=== PATIENT | female | born 1950 | race Caucasian/White ===

== ENCOUNTER 2023-02-09 08:27 | Inpatient (IN) | payer MEDICARE, OTHER, SELFPAY ==
[2023-02-09] VITALS (8 sets, daily range): BP systolic 0–101; BP diastolic 0–82; PULSE 0–141; RESP 0–30; TEMP 35.9; O2SAT 0–100
[2023-02-09 08:39] LABS: Glucose Point of Care 349 mg/dL (70-110)
--- NOTE | 2023-02-09 08:39 | CTR_ITS ---
PROCEDURE INFORMATION: Exam: CT Head Without Contrast Exam date and time: 02/09/2023 7:29 AM Age: 72 years old Clinical indication: Stroke-like symptoms; Altered mental status/memory loss and drowsines/somnolence; Additional info: Stroke like symptoms TECHNIQUE: Imaging protocol: Computed tomography of the head without contrast. Radiation optimization: All CT scans at this facility use at least one of these dose optimization techniques: automated exposure control; mA and/or kV adjustment per patient size (includes targeted exams where dose is matched to clinical indication); or iterative reconstruction. Other technique: STROKE PROTOCOL was implemented. REPORTING DATA: Count of CT and Cardiac NM exams in prior 12 months: This patient has received 0 known CTs and 0 known cardiac nuclear medicine studies in the 12 months prior to the current study. COMPARISON: No relevant prior studies available. RADIATION DOSE METRICS: Total DLP (mGy-cm): 1025 FINDINGS: Brain: Patchy hypoattenuation in the periventricular and subcortical white matter, consistent with chronic small vessel ischemia. No CT evidence of acute ischemia. No acute hemorrhage. No mass effect. Cerebral ventricles: No ventriculomegaly. Paranasal sinuses: Visualized sinuses are unremarkable. No fluid levels. Mastoid air cells: Visualized mastoid air cells are well aerated. Orbital cavities: Bilateral lens extractions. Bones/joints: Unremarkable. No acute fracture. Soft tissues: Unremarkable. Vasculature: Dense calcification in the region of the right supraclinoid ICA. CT/CT head wo con* [id number] IMPRESSION: No acute intracranial abnormality. Please note that MRI is more sensitive for early changes of acute ischemia. ASSESSMENT: ASPECTS (Chantal Stroke Program Early CT Score) is 10.
--- NOTE | 2023-02-09 08:51 | ED_ITS ---
HPI - Neuro Symptoms/Deficit General: Chief Complaint: Neuro Symptoms/Deficit Stated Complaint: STROKE LIKE SYMPTOMS Time Seen by Provider: 02/09/23 08:50 History of Present Illness: Patient presents to the ER by EMS with complaints of abdominal pain and right-sided upper extremity and lower extremity neglect as well as expressive aphasia. EMS states patient was normal at approximately 7 AM this morning and her agreed to this. Patient started having abdominal pain when came back to talk to he said she was just not herself she was not moving her right upper and lower extremity and was only able to get out 1 word answers to simple questions. Upon further talking to he did state patient had black bowel movements approximately 1 week ago. does admit to patient drinking alcohol chronically and taking [id number] equate daily. He states overall she is fairly healthy but also she has not went to the doctor in years and does not take any medicine. Onset (ago): hour(s) (2) Last Observed Normal: 07:00 Timing confirmed by: spouse Location: speech, right arm and right leg History of same: No Severity: moderate Quality: weak Relieving factors: none Exacerbating factors: none Context: sudden onset On Anticoagulants: No Associated symptoms: Reports no associated symptoms Treatments Prior to Arrival: other medication (250 mls ns per ems ) Review of Systems General: Reports: ROS unobtainable due to medical condition [facility] PFSH: Medical History (Updated 02/09/23 @ 11:08 by DANICA Stevens) Abnormal EKG Acute kidney injury Blood loss anemia Cardiac arrest Gastrointestinal bleeding Hyperkalemia Metabolic acidosis Respiratory failure Transaminitis NIH stroke score NIHSS: Level Of Consciousness - 1a: 0 Level Of Consciousness Questions - 1b: Both Correct Level Of Consciousness Commands - 1c: Both Correct Best Gaze - 2: Partial Gaze Palsy Facial Palsy - 4: Normal Motor Arm Right - 5: No Drift Motor Arm Left - 5: No Drift Motor Leg Right - 6: No Drift Motor Leg Left - 6: No Drift Limb Ataxia - 7: Present In Two Limbs Sensory - 8: Mild To Moderate Loss Best Language - 9: Mild/Moderate Aphasia Dysarthia - 10: Normal Physical Exam Const: COMMON NORMALS: alert GENERAL APPEARANCE: frail appearing and appears older than stated age HENMT: COMMON NORMALS: normocephalic, atraumatic and hearing grossly normal bilaterally HEAD & SCALP: normocephalic and atraumatic Eye: COMMON NORMALS: Equal, round and reactive pupils present and EOMs intact bilaterally PUPIL: Yes Equal, round and reactive pupils present Neck/C-Spine: COMMON NORMALS: full ROM, no lymphadenopathy, supple, no meningeal signs, no JVD and Thyroid normal THYROID: Thyroid normal Chest: COMMONS NORMALS: normal inspection of the chest Resp: COMMON NORMALS: normal respiratory effort, No retractions and No use of accessory muscles Cardio: COMMON NORMALS: no JVD, S1 normal heart sound present and S2 normal heart sound present RATE: tachycardic HEART SOUNDS: S1 normal heart sound present and S2 normal heart sound present GI: COMMON NORMALS: Normal to inspection, nondistended, normoactive bowel sounds present, Soft to palpation and non-tender PALPATION: Yes Soft to palpation : COMMON NORMALS: Yes no CVA tenderness BLADDER/KIDNEY EXAM: Yes no CVA tenderness Back/Pelvis: COMMON NORMALS: no CVA tenderness Extremity: COMMON NORMALS: normal to inspection Neuro: SENSORIUM/ORIENTATION: Yes alert MENINGEAL SIGNS: Yes no meningeal signs SPEECH: expressive aphasia GAIT: Yes Unable to assess gait Psych: APPEARANCE: Yes grossly normal Skin: COMMON NORMALS: no rashes or lesions noted GENERAL SKIN EXAM: no rashes or lesions noted Procedures Intubation Additional Comments: intubation performed by electronic maintenance supervisor and medic, with no complications, 20 mg etomidate given during procedure, then pt placed on a proprofol drip Course Vital Signs: Vital signs: Vital Signs Temperature 96.6 F L 02/09/23 08:34 Pulse Rate 141 H 02/09/23 11:38 Respiratory Rate 13 02/09/23 11:29 Blood Pressure 101/82 02/09/23 11:38 Pulse Oximetry 100 02/09/23 11:20 Oxygen Delivery Me thod 02/09/23 08:34 Fraction of Inspir ed Oxygen 100 02/09/23 11:20 MDM - Neuro Symptoms/Deficit Medical Decision Making Patient presents to the ER with complaints of right-sided weakness and aphasia since 7 AM. EMS states she only 1 word answers out and does not make sense as well as not able to move her right upper and lower extremities at all. Code stroke was called patient was taken immediately to the CT scan when patient arrived back to the ER she was still having one-word answers somewhat appropria te and would follow somewhat commands but she was able to move her right upper and lower extremities against gravity. Neurology was consulted who did a telemetry neurology visit and thought she was not appropriate for tPA at this time. After this time patient took a turn for the worse and became to have agonal respirations and eventually went asystolic. CODE BLUE was called CPR was performed patient was given 2 rounds of epi as well as intubated. Patient's pulse did return and EKG was obtained again on patient however this time it did show ST segment elevation in multiple leads. Dr. Ramirez was consulted and code STEMI was called however during this time. Patient's lab work start returning and showed a hemoglobin of 4.0. ABG was obtained initial ABG showed a pH of 6.6 patient was given 1 dose of bicarb, a repeat ABG was true because of discrepancies in the first ABG and it showed a improved pH of about 7.45. Potassium in the sixes. Dr. Patel was consulted also Dr. Ramirez decided to not take the patient to the [facility] due to the low hemoglobin and care was transitioned over Dr. Patel Differential Diagnosis Likely cerebrovascular accident and transient cerebral ischemia Medical Records I reviewed the patient's medical records. Lab Data I reviewed the patient's lab results. 02/09/23 09:30 02/09/23 09:[address] 02/09/23 08:39 IMPRESSION: No acute intracranial abnormality. Please note that MRI is more sensitive for early changes of acute ischemia. ASSESSMENT: ASPECTS (Chantal Stroke Program Early CT Score) is 10. Chest X-Ray 02/09/23 10:33 IMPRESSION: 1. Endotracheal tube terminates approximately 4.6 cm above the michael. 2. Right IJ central venous catheter terminates in the region of the right atrium. 3. Enteric tube terminates in the region of the gastric body with side port likely just below the GE junction. Laboratory Results WBC 23.4 10^3/uL (4.0-10.0) H 02/09/23 09:30 Corrected WBC 18.1 10^3/cmm (4.8-10.8) H 02/09/23 09:30 RBC 1.06 10^6/uL (4.1-5.3) L 02/09/23 09:30 Hgb 4.1 g/dL (11.5-15.3) L* 02/09/23 09:30 Hct 15.5 % (37.0-47.0) L* 02/09/23 09:30 MCV 146.2 fl (81-99) H 02/09/23 09:30 MCH 38.7 pg (28.0-34.0) H 02/09/23 09:30 MCHC 26.5 g/dL (30.0-36.0) L 02/09/23 09:30 RDW 16.0 % (12.1-15.1) H 02/09/23 09:30 Plt Count 348 10^3/cmm (130-400) 02/09/23 09:30 MPV 10.5 fL (7.4-10.4) H 02/09/23 09:30 Lymph % (Auto) Not Reportable 02/09/23 09:30 Sierra % (Auto) Not Reportable 02/09/23 09:30 Lymph # (Auto) Not Reportable 02/09/23 09:30 Sierra # (Auto) Not Reportable 02/09/23 09:30 Total Counted 100 (0-100) 02/09/23 09:30 Atypical Lymphs % 0.0 % (0-5) 02/09/23 09:30 Absolute Neutrophils 15.2 10^3/cmm (1.4-6.5) H 02/09/23 09:30 Segmented Neutrophils 61 % 02/09/23 09:30 Abs Segm Neuts (Man) 14.3 10/cmm (1.6-7.1) H 02/09/23 09:30 Band Neutrophils 4.0 % 02/09/23 09:30 Abs Band Neuts (Man) 0.9 10^3/cmm (0.0-1.2) 02/09/23 09:30 Absolute Lymphocytes 8.0 10^3/cmm (1.2-3.4) H 02/09/23 09:30 Lymphocytes (Manual) 34 % 02/09/23 09:30 Monocytes (Manual) 1.0 % 02/09/23 09:30 Absolute Monocytes 0.2 10^3/cmm (0.1-0.6) 02/09/23 09:30 Eosinophils (Manual) 0 % 02/09/23 09:30 Absolute Eosinophils 0.0 10^3/cmm (0.0-0.7) 02/09/23 09:30 Basophils (Manual) 0.0 % 02/09/23 09:30 Absolute Basophils 0.0 10^3/cmm (0.0-0.2) 02/09/23 09:30 Nucleated RBCs 29.0 /100WBC (0-1) H 02/09/23 09:30 Platelet Estimate Normal (Normal) 02/09/23 09:30 Polychromasia 1+ H 02/09/23 09:30 Anisocytosis 1+ H 02/09/23 09:30 Macrocytosis 1+ H 02/09/23 09:30 PT 25.70 SECONDS (12.1-14.9) H 02/09/23 09:30 INR 2.25 (0.8-1.2) H 02/09/23 09:30 APTT 38.1 SECONDS (23.9-36.7) H 02/09/23 09:30 Specimen Type Arterial 02/09/23 09:34 Sample Site Femoral, left 02/09/23 09:34 ABG pH 6.65 (7.35-7.45) L* 02/09/23 09:34 ABG pCO2 28.8 mmHg (35-45) L 02/09/23 09:34 ABG pO2 49.5 mmHg (80.0-100.0) L 02/09/23 09:34 ABG HCO3 3.2 mmol/L (22-26) L 02/09/23 09:34 ABG O2 Saturation 39.9 02/09/23 09:34 ABG Base Excess -30.1 mmol/L (-2.0-2.0) L 02/09/23 09:34 Timmy Test N/a 02/09/23 09:34 A-a O2 Gradient 80.9 mmHg (5-10) H 02/09/23 09:34 Hematocrit 13.5 % (37-47) L 02/09/23 09:34 Hgb O2 Saturation 38.9 % (95-100) L 02/09/23 09:34 Carboxyhemoglobin 1.1 %THgb (0.4-20.1) 02/09/23 09:34 Methemoglobin 1.4 % (0.4-1.5) 02/09/23 09:34 Total Hemoglobin 4.4 g/dL (12-16) L 02/09/23 09:34 Sodium 146.0 mmol/L (131-143) H 02/09/23 09:34 Potassium 6.0 mmol/L (3.5-5.0) H 02/09/23 09:34 Glucose 296.0 mg/dL (70-115) H 02/09/23 09:34 Ionized Calcium 1.2 mmol/L (1.1-1.4) 02/09/23 09:34 Respiration Rate 18.0 % 02/09/23 09:05 O2 Delivery Device Vent 02/09/23 09:34 Spontaneous Rate 22.0 % 02/09/23 09:05 FiO2 100.0 % 02/09/23 09:34 Tidal Volume 0.45 02/09/23 09:34 PEEP 5.0 cmH20 02/09/23 09:34 Specimen Drawn By Glc 02/09/23 09:05 Health And Safety Director ID glc 02/09/23 09:34 Blood Gas Notified Time 92402/09/23 09:05 Sodium 145 mmol/L (136-145) 02/09/23 09:30 Potassium 5.8 mmol/L (3.5-5.1) H 02/09/23 09:30 Chloride 107 mmol/L (98-107) 02/09/23 09:30 Carbon Dioxide 4 mmol/L (22-29) L* 02/09/23 09:30 Anion Gap 39.8 (5-19) H 02/09/23 09:30 BUN 17 mg/dL (8-23) 02/09/23 09:30 Creatinine 1.3 mg/dL (0.5-0.9) H 02/09/23 09:30 GFR Calculation 40.5 mL/min (90-130) L 02/09/23 09:30 Glucose 298 mg/dL (65-115) H 02/09/23 09:30 POC Glucose 349 mg/dL (70-110) H 02/09/23 08:37 Calculated Osmolality 313 mOsm/kg (285-295) H 02/09/23 09:30 Lactic Acid 23.0 mmol/L (0.5-2.2) H* 02/09/23 09:30 Calcium 7.7 mg/dL (8.5-10.5) L 02/09/23 09:30 Total Bilirubin 0.4 mg/dL (0.15-1.2) 02/09/23 09:30 AST 405 U/L (0-32) H 02/09/23 09:30 ALT 268 U/L (0-33) H 02/09/23 09:30 Alkaline Phosphatase 33 U/L (35-105) L 02/09/23 09:30 Troponin T Baseline 1753 ng/L (0-10) H* 02/09/23 09:30 Total Protein 4.2 g/dL (6.6-8.7) L 02/09/23 09:30 Albumin 2.6 g/dL (3.5-5.2) L 02/09/23 09:30 Globulin 1.6 g/dL (1.3-4.6) 02/09/23 09:30 Blood Type O Positive 02/09/23 10:04 Rho(D) Type Positive 02/09/23 10:04 Antibody Screen Not Reportable 02/09/23 10:04 PEG Antibody Screen Negative 02/09/23 10:04 Crossmatch See Detail 02/09/23 10:[address] Head: Radiologist's impression: Negative for acute changes EKG Data EKG 1: I personally reviewed and interpreted this EKG as follows: EKG interpretation date: 02/09/23 EKG interpretation time: 08:39 Prior EKG tracings: not available for review Interpretation: EKG showed sinus tachycardia 132 beats a minute UT interval of 123 QRS duration of 109 QT of [address] depression and abnormal QRST angle no previous tracings are available for review. EKG 2: I personally reviewed and interpreted this EKG as follows: EKG interpretation date: 02/09/23 EKG interpretation time: 09:19 Prior EKG tracings: available for review Ischemic changes: acute STEMI Interpretation: EKG showed supraventricular tachycardia with a rate of 122 beats a minute left axis deviation low voltage QRS possible right ventricular conduction delay marked ST elevation in leads V3 through V6 Critical Care Time Critical Care Time: Critical Care Time: Yes Total Critical Care Time: 60 Attestation: Patient agonal respirations and then went pulseless. CODE BLUE was called CPR was started for approximately 6 minutes patient received 2 rounds of epi patient was intubated by WOOD TOOL MAKER and medic and put on ventilator. ABGs were obtained first that showed a pH of approximately 6.6 however this may have been a venous gas 1 amp of bicarb was given a second ABG showed a pH of approximately 7.4 new EKG was obtained that showed ST elevation cardiology was consulted lab work showed hemoglobin of 4.[address] Patel was consulted patient was given 20 of etomidate during the intubation process patient was put on a propofol drip for sedation patient's pressure was lower than desired patient was eventually p laced on a Levophed drip. Dr. 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
[2023-02-09] MEDS: sodium chloride 0.9% 1,000 ML 999 ML IV (09:00)
--- NOTE | 2023-02-09 09:09 | PC.PHAR ---
pt unable to verify medications-ext med history shows last filled propranolol er 60mg daily filled 01/13/23 30d/s and atorvastatin 10mg daily filled 02/22/22 90d/s-[facility] pharmacy not open in 02/09/23Friday to verify if more meds are filled or have been picked up
--- NOTE | 2023-02-09 09:19 | ECG_ITS ---
[facility] Test Date: 2023-02-09 Pat Name: Lorin Zepeda Department: Room: Gender: Female Lever Tender: : 1950 Requested By: Jasson Abdi Order Number: [id number] Sanjay MD: Keli Omalley M.D. Measurements Intervals Kidder Rate: 122 P: 0 MD: 0 QRS: -34 QRSD: 80 T: 120 QT: 342 QTc: 488 Interpretive Statements SUPRAVENTRICULAR TACHYCARDIA LEFT AXIS DEVIATION [QRS AXIS < -30] LOW QRS VOLTAGE [QRS DEFLECTION < 0.5/1.0 mV IN LIMB/CHEST LEADS] POSSIBLE RIGHT VENTRICULAR CONDUCTION DELAY [RSR (QR) IN V1/V2] MARKED ST ELEVATION, CONSIDER ANTEROLATERAL INJURY [MARKED ST ELEVATION W/O NORMALLY INFLECTED T-WAVE IN V3-V6] ACUTE MD No previous ECG available for comparison Electronically Signed On 02-09-2023 19:40:16 CDT by Keli Omalley M.D. [id number]
[2023-02-09] MEDS: heparin 5,000 unit/mL INJ 1 mL 5000 UNIT (09:20)
[2023-02-09] MEDS: etomidate 2 mg/mL INJ SDV 10 mL 20 MG IVP (09:22)
[2023-02-09] MEDS: propofol 1,000 MG/100 ML INJ 3.38 MG IV (09:27)
[2023-02-09 09:44] LABS: ABG PCO2 28.8 mmHg (35-45); Alveolar-Arterial Oxygen Gradi 80.9 mmHg (5-10); Arterial Blood Gas Hematocrit 13.5 % (37-47); Base Excess ABG -30.1 mmol/L (-2.0-2.0); Blood Gas Operator Identificat glc; Blood Gas Sample Site Femoral, left; Blood Gas Sample Type Arterial; Blood Gas Tidal Volume 0.45; Carboxyhemoglobin 1.1 %THgb (0.4-20.1); HCO3 ABG 3.2 mmol/L (22-26); HGB O2 Sat 38.9 % (95-100); Ionized Calcium Level - ABG 1.2 mmol/L (1.1-1.4); Methemoglobin 1.4 % (0.4-1.5); Oxygen Device VENT; Oxygen Saturation ABG 39.9; PO2 ABG 49.5 mmHg (80.0-100.0); Total Hemoglobin 4.4 g/dL (12-16)
[2023-02-09 09:51] LABS: Mean Corpuscular HGB Conc 26.5 g/dL (30.0-36.0); Mean Corpuscular Hemoglobin 38.7 pg (28.0-34.0); Mean Corpuscular Volume 146.2 fl (81-99); Mean Platelet Volume 10.5 fL (7.4-10.4); Platelet Count 348 10^3/cmm (130-400); Red Blood Count 1.06 10^6/uL (4.1-5.3); White Blood Count 23.4 10^3/uL (4.0-10.0)
[2023-02-09 09:53] LABS: INR 2.25 (0.8-1.2); Partial Thromboplastin Time 38.1 SECONDS (23.9-36.7)
--- NOTE | 2023-02-09 09:55 | P.CONIM_ITS ---
Providers/Reason For Consult Consulting Physician/Specialty*: Cardiovascular medicine Reason for Consult*: Cardiac arrest with abnormal EKG Requesting Physician: Trinidad Attending Physician: Brett Ramirez MD Primary Care Provider: Manuel Romero MD History of Present Illness History of Present Illness Lorin Zepeda is a 72 year old female who apparently has no known cardiac history or vascular history. This history is taken from the emergency room physician and other personnel in the emergency room. Patient apparently awoke t his morning with neurologic symptoms to include slurred speech and weakness of the right arm and leg. She was brought to the emergency room as a stroke alert. Neurology was contacted, the patient was sent to CT and tPA was ordered. The CT was negative. Shortly thereafter the patient's neurologic symptoms resolved and she had a cardiac arrest. Fortunately, the tPA had not been administered. I am not sure what the initial rhythm was after the arrest. Patient's first EKG was done at 0839 hrs. and showed sinus tachycardia with minimal diffuse ST segment depression. After the arrest and resuscitation the EKG revealed sinus tachycardia with ST segment elevation in leads V2 through V6 as well as leads I and L. The resuscitation involves CPR, intubation, etomidate, propofol and norepinephrine by continuous infusion. She has received 4000 units of heparin. The first set of labs to return was an arterial blood gas after resuscitation. The PO2 is 49, PCO2 28 and the pH is 6.65. Her potassium is 6.0. Glucose is 349. I asked the emergency room to give the patient 2 A of bicarbonate prior to bringing her to the cardiac catheterization laboratory. As the laboratory data were coming back I spoke to her , sister, daughter and son-in-law. Her sister told me that she drinks alcohol somewhat heavily. Her told me that she uses equate [id number] and takes multiple pills per day. Her also told me that she had been complaining of weakness. They did not notice that she was pale. She had been complaining of abdominal pain for the last couple of days. She also told her 3 to 4 days ago that her stool was black and tarry. She is sedated now on the ventilator. After I finished talking to the family the second blood gas returned with a pH o f 7.49, PCO2 of 42 and PO2 of 344. Additionally her hemoglobin came back at 4.1. Her white blood cell count is 23.4. Creatinine is 1.3. Calculated glomerular filtration rate is 40.5. Her BUN is 17. Serum carbon dioxide is 4. AST 405, ALT 268. Albumin 2.6. Review of Systems Narrative: Review of systems is unavailable due to the patient's intubated status. Medications/Allergies Home Medications Medication Instructions Recorded Confirmed Last Taken Type Unable to Assess 02/09/23 02/09/23 Unknown History Current Medications Generic Name Dose Route Start Last Admin Trade Name Freq PRN Reason Stop Dose Admin Propofol 1,000 mg in 100 mls @ 0 mls/hr 02/09/23 09:30 02/09/23 09:27 Diprivan IV 10 mcg/kg/min .Q0M JACKY 3.38 mls/hr Administration Protocol Per Protocol PFSH Acute PFSH: Medical History (Updated 02/09/23 @ 10:38 by Brett Ramirez MD) Abnormal EKG Acute kidney injury Blood loss anemia Cardiac arrest Gastrointestinal bleeding Hyperkalemia Metabolic acidosis Respiratory failure Transaminitis Vitals/I&O/Wt Last Vital Signs Temp 96.6 F L 02/09/23 08:34 Pulse 106 H 02/09/23 08:34 Resp 28 H 02/09/23 09:44 BP 87/42 02/09/23 08:34 Pulse Ox 95 02/09/23 08:34 O2 Del Method 02/09/23 08:34 FiO2 100 02/09/23 09:44 Weight last 48 hrs Weight 124 lb Physical Exam Narrative: GENERAL: In general patient is intubated and sedated but moving some. HEENT: Exam within normal limits. NECK: Supple without jugular vein distention. The carotid upstroke is normal without bruits. BACK: Exam normal. LUNGS: Clear. HEART: Regular rate and rhythm. ABDOMEN: Benign without organomegaly or tenderness. EXTREMITIES: No edema. NEUROLOGIC: Exam normal. SKIN: Unremarkable. Pale Data 02/09/23 09:30 02/09/23 09:30 A&P Assessment and plan (1) Blood loss anemia: (2) Gastrointestinal bleeding: (3) Metabolic acidosis: (4) Cardiac arrest: (5) Abnormal EKG: (6) Respiratory failure: (7) Hyperkalemia: (8) Acute kidney injury: (9) Transaminitis: Plan Treat potassium. Transfuse packed red blood cells. Further assess labs and x- rays. Reassess EKG. I suspect that the EKG changes will resolve after resuscitation with red cells and lowering of the potassium. At this time it is far too dangerous to perform angiography. I have updated the family to include the individuals mentioned above. I have spoken to Dr. Euceda the hospitalist and the emergency room physician and personnel. Consult Attestations Medical Necessity Statement: The patient will need to be admitted to the ICU for management of blood loss anemia, GI bleed, hyperkalemia, transaminitis among others. and High Time for a total of 80 minutes, includes reviewing past or interval history, examining/interviewing patient, placing orders, counseling patient/family/other support, updating patient/family/other support, discussing plan of care with staff, communicating with other healthcare providers, documenting encounter and coordinating care Diagnoses Blood loss anemia D50.0 Gastrointestinal bleeding K92.2 Metabolic acidosis E87.20 Cardiac arrest I46.9 Abnormal EKG R94.31 Respiratory failure J96.90 Hyperkalemia E87.5 Acute kidney injury N17.9 Transaminitis R74.01
[2023-02-09 09:59] LABS: Alanine Aminotransferase 268 U/L (0-33); Albumin Level 2.6 g/dL (3.5-5.2); Alkaline Phosphatase 33 U/L (35-105); Aspartate Amino Transferase 405 U/L (0-32); Blood Urea Nitrogen 17 mg/dL (8-23); Calcium 7.7 mg/dL (8.5-10.5); Chloride 107 mmol/L (98-107); Globulin 1.6 g/dL (1.3-4.6); Glomerular Filtration Rate 40.5 mL/min (90-130); Glucose 298 mg/dL (65-115); Osmolality Calculated 313 mOsm/kg (285-295); Sodium 145 mmol/L (136-145); Total Bilirubin 0.4 mg/dL (0.15-1.2); Total Protein 4.2 g/dL (6.6-8.7)
[2023-02-09 10:09] LABS: Slide Review Slide Review Perform
[2023-02-09 10:10] LABS: Hematocrit 15.5 % (37.0-47.0); Hemoglobin 4.1 g/dL (11.5-15.3)
[2023-02-09 10:14] LABS: Absolute Segmented Neutrophil 14.3 10/cmm (1.6-7.1); Band Neutrophils Absolute 0.9 10^3/cmm (0.0-1.2); Corrected White Blood Count 18.1 10^3/cmm (4.8-10.8); Lymphocytes 34 %; Monocytes Absolute 0.2 10^3/cmm (0.1-0.6); Segmented Neutrophils 61 %; Total Cells Counted 100 (0-100)
[2023-02-09 10:15] LABS: Eosinophils 0 %; Polychromasia 1+
[2023-02-09 10:16] LABS: Anisocytosis 1+; Macrocytosis 1+
[2023-02-09 10:17] LABS: Absolute Neutrophil 15.2 10^3/cmm (1.4-6.5); Platelet Estimate Normal (Normal)
[2023-02-09 10:30] LABS: Anion Gap 39.8 (5-19); Potassium 5.8 mmol/L (3.5-5.1)
[2023-02-09 10:31] LABS: Carbon Dioxide 4 mmol/L (22-29)
--- NOTE | 2023-02-09 10:33 | XRR_ITS ---
PROCEDURE INFORMATION: Exam: XR Chest Exam date and time: 02/09/2023 10:39 AM Age: 72 years old Clinical indication: Device placement; Ett placement (vent status); Additional info: Central line placement et and ng placement TECHNIQUE: Imaging protocol: Radiologic exam of the chest. Views: 1 view. COMPARISON: No relevant prior studies available. FINDINGS: Tubes, catheters and devices: Endotracheal tube terminates approximately 4.6 cm above the michael. Right IJ central venous catheter terminates in the region of the right atrium. Enteric tube terminates in the region of the gastric body with side port likely just below the GE junction. Defibrillator pads overlie the thorax. Lungs: Unremarkable. No consolidation. Pleural spaces: Unremarkable. No pleural effusion. No pneumothorax. Heart/Mediastinum: Unremarkable. No cardiomegaly. Bones/joints: Unremarkable. XR/XR chest 1V portable [id number] IMPRESSION: 1. Endotracheal tube terminates approximately 4.6 cm above the michael. 2. Right IJ central venous catheter terminates in the region of the right atrium. 3. Enteric tube terminates in the region of the gastric body with side port likely just below the GE junction.
[2023-02-09 10:58] LABS: ABG PH Result 6.65 (7.35-7.45)
--- NOTE | 2023-02-09 11:15 | PC.NURSE ---
recieved from er to icu 11 unresponsive on ventilator ,bagging in progress at this time color pale and cool to touch pulse palpable very weak on levophed gtt at 20mcg. versed gtt on hold , vasopression at 0.2 , anesthesia here attempting to insert art line at this time
--- NOTE | 2023-02-09 11:30 | PC.NURSE ---
while attemping to start lines pt noted no pulse cpr stated ... see code sheet
[2023-02-09 11:34] LABS: ABG PH Result 7.49 (7.35-7.45); Blood Gas Operator Identificat GLC; Potassium Level - ABG 5.3 mmol/L (3.5-5.0)
[2023-02-09 11:35] LABS: Blood Gas Drawn By GLC; Blood Gas Sample Type Arterial; Oxygen Device VENT
[2023-02-09 11:36] LABS: Alveolar-Arterial Oxygen Gradi 299.9 mmHg (5-10); Arterial Blood Gas Hematocrit 12.2 % (37-47); Blood Gas Sample Site RB; Ionized Calcium Level - ABG 0.9 mmol/L (1.1-1.4)
[2023-02-09 11:37] LABS: Carboxyhemoglobin 1.3 %THgb (0.4-20.1); HGB O2 Sat 98.8 % (95-100); Methemoglobin 1.1 % (0.4-1.5)
[2023-02-09] MEDS: midazolam 1 mg/mL INJ 2 mL 2 MG (11:54)
[2023-02-09] MEDS: sodium bicarbonate 150 MEQ in dextrose 5% 1,000 ML 100 MEQ IV (11:56)
--- NOTE | 2023-02-09 12:01 | PC.NURSE ---
family at bedside aware of status no blood pressure remains in emd at this time epi gtt infusing along with levophed and eduarda noted blood in et tube after prolonged cpr
--- NOTE | 2023-02-09 12:10 | PC.NURSE ---
code stopped at request of family all medications off
--- NOTE | 2023-02-09 12:20 | PC.NURSE ---
Patient was brought in by EMS from home due to strokelike symptoms per family and EMS. Stroke alert was called at 0820. Patient had complaints of abdominal pain and black tarry stools for a few days that has been getting worse per family. Upon EMS arrival to the home, pt had right side neglect and would only respond to painful stimuli. Pt also had fast respirations and was put on 10L NR per ems. Upon EMS arrival to the ED, pt was taken straight to CT for a head scan. Pt was altered and very restless but was able to follow some commands in CT and when arriving to ED room. Dr Rizvi was notified. Dr Abdi at bedside. Dr Rizvi assessed pt via telehealth iPad; approved not administering TPA due to negative stroke scale and CT scan. While attaining complete assessment, pt began to have decreased responsiveness, appears cool and pale, agonal breathing, unable to attain O2 sats, and hypotensive. Cardiac monitoring showed asystole and no pulse noted by Dr Abdi. CPR initiated at 0906. 0906: CPR started; asystole 0909: Epi given 0910: Pulse check; no pulse; CPR continued 0912: pulse check; Epi given; pulse found and ROSC obtained 0916: 8FR ETT placed and vent connected 0918: 20 mg Etomidate given for sedation per Dr Adbi EKG was done showing a STEMI per Dr Abdi. STEMI Alert called at 0921. Dr Ramirez at bedside and stores lab[employer] staff notified. Multiple meds ordered by Dr Abdi, Dr Ravi, and Dr Ramirez and given/drips started. While waiting on stores [employer] staff, pt labs resulted with low Hgb and K+. Emergent uncrossed blood ordered. Pt started on 2 units of blood on pressure bags. Dr Ramirez ordered pt to stay in ED until stable enough to go to stores laborer. Dr Ravi at bedside inserted a central line in right neck area. Pt assigned ICU room. Pt taken via stretcher to ICU 11 and bedside report given to KEVYN Holt and KEVYN COLLIER at 1100. Pt stable upon transportation with me, RT, and critical ED techs. Full detailed vital signs scanned into pt chart.
[2023-02-09 12:25] LABS: Hemoglobin 2.7 g/dL (11.5-15.3)
--- NOTE | 2023-02-09 12:25 | PC.NURSE ---
no pulse no blood pressure asystole . family at bedside
[2023-02-09 12:30] LABS: Troponin(5th) Baseline 1753 ng/L (0-10)
--- NOTE | 2023-02-09 13:18 | PC.NURSE ---
continued coding for prolonged time with short return of pulse unable to obtain pressure continue code .
--- NOTE | 2023-02-09 13:41 | P.HP_ITS ---
Providers/Chief Complaint Admitting Physician: Sumit Ravi MD Primary Care Provider: Manuel Romero MD Chief Complaint: STROKE LIKE SYMPTOMS History of Present Illness Lorin Zepeda is a 72 year old female with a past medical history of alcoholism, history of chronic pain, chronic neck pain, status post neck surgery, on chronic NSAID medications, no known history of CAD, no known history of stroke, no she potentially had a history of diabetes but family is unsure, she is a heavy alcohol drinker, she does use NSAIDs multiple times throughout the day, due to her chronic neck pain who presents to [facility] due to nonresponsiveness, increased confusion, slurred speech, right arm and right leg weakness. Currently patient is intubated, sedated, in hemorrhagic shock, most of the history was obtained by patient's family members in which I had an extensive family meeting, including patient's , patient's daughter and son. According to patient's family, patient has a history of alcoholism, drinks a couple of drinks of alcohol a day, she also has chronic neck pain for which she has had neck surgery, but due to chronic pain, she uses NSAIDs daily mult iple times throughout the day. For the last few days she has been complaining of black tarry stools and abdominal pain. This morning when woke her up around 7 AM, she was not responding appropriately, she displayed right upper right lower extremity weakness, with expressive aphasia, she was not herself, she only could provide one-word answers. On arrival patient came in as a stroke alert, however after review with neurology, CT head was negative, she was not deemed a tPA candidate. Patient developed agonal breathing in the emergency room, eventually developed asystole, CODE BLUE called, CPR initiated, received 2 rounds of epinephrine, was intubated, with ROSC, EKG showing ST elevations, cardiology consulted, plans on taking to cardiac catheterization lab. Patient's labs Were coming back at the same time and she was found to have a hemoglobin of 4, ABG showed a pH of 6.6, received amp of bicarb, repeat ABG showed a pH of 7.45 possible and discrepancy between ABGs. -I had an extensive meeting with ER physician and cardiology -Cardiology has advised against cardiac catheterization for now, given her severe anemia 4, INR of 2.2, likely source of her strokelike symptoms and her ST elevations is acute anemia -During this time patient was having hemodynamic compromise, was on Levophed, at 10, on 100% FiO2, not responding to commands, not on sedation, she was mottled in bilateral lower extremities up to the level of knee, -Abdomen was a bit distended, no guarding, no rebound, no rigidity -She had diminished peripheral pulses, DP PT pulses were barely palpable, with a bluish hue to peripheral extremities -Pupils were fixed and dilated -Review of her blood work shows elevated LFTs, possible shock liver, but she does have a history of alcoholism -With elevated INR possibly related to alcoholism -Hemoglobin of 4, with history of bloody black tarry stools, and abdominal pain concerning for GI bleed -She had lactic acidosis -Respiratory failure on ventilation -1.3, with minimal urine output after Garza catheter placement -Blood sugar was 349 -Albumin was 2.6 likely sec to alcoholism -Potassium is 5.8, receiving insulin, D50 -At this point, patient was stabilized in the emergency room by me -My acute concern was for acute hemorrhagic shock, with lactic acidosis, with multiorgan failure, shock liver shock kidney wound, with NSTEMI, acute cardiac event due to hypoperfusion, acute neurologic injury due to hypoperfusion, -I immediately placed a right central line -In the emergency room she was given pressure back 3 units of PRBC, two 1 L boluses, she was turned up to 20 of Levophed 0.1 of vasopressin -She was started on bicarb drip with a bicarb of 4 -She was immediately taken back to the intensive care unit -In the intensive care unit -Patient was started on epinephrine drip, received 2 more units of PRBC, receiving FFP -Patient had 1 episode of bradycardia leading to asystole loss of pulse at around 1130, received epinephrine,, calcium chloride, atropine, Levophed increased to 40, epinephrine drip titrated, on maximum dose Levophed, received 10 units insulin, dextrose. With return of spontaneous circulation. At 1144 she had another episode of asystole, with loss of pulse received CPR, had ventricular tachycardia, receiving shocking, received lidocaine at 1145 received amiodarone 1146, with return of spontaneous circulation. At 1154 she developed another episode of of asystole bradycardia, with loss of pulse CPR was started epinephrine drip was titrated receiving another gram of calcium chloride, bicarb, mag, ongoing CPR -On examination, she had bloody output from her ET tube, pupils were fixed and dilated, nonresponsive to light, she had mottling up to the level of her abdomen, DP PT pulses were not palpable, bluish tinge to lower extremities, arms, bilateral breath sounds were heard, abdomen is soft, slightly distended, no bowel sounds heard -I had an extensive discussion with the patient's family about patient's findings -I am concerned that patient has developed hemorrhagic shock, with a lactic acidosis, multiorgan failure, with her coronary hypoperfusion resulting in EKG changes, with cerebral hyperperfusion resulting in strokelike symptoms, she has evidence of renal failure with minimal urine output, shock liver, elevated troponins, elevated lactic acid, elevated creatinine, with hyperkalemia, with metabolic acidosis, elevated INR 2.25, all secondary to GI bleed upper and or lower. The cause of the GI bleed could be related to her alcoholism and or her NSAID use. In addition I was concerned for possible aneurysm rupture versus ischemic bowel, due to her sudden deterioration -I also was going to reach out to general surgery for their input however patient was not stable enough for me to ever leave her room or leave her bedside, accepted discussed with family the goals of care, and stabilization was too difficult, and I believe surgery could have done anything acutely at this time for the patient -At this point patient has roughly received 15 minutes of CPR, remained in hemorrhagic shock, has received 5 units of blood, being pressure bagged in, multiple liters of fluid, up to 45 on vasopressin, on an epi drip, no vasopressin drip, Protonix, octreotide,, has received maximal medical therapy however remains in hemorrhagic shock, remains hypoperfused, continues to have cardiac arrest asystole episodes -I was honest with family, what I am worried about is this prolonged hypoperfusion to the brain, and anemia to the brain, I think the likelihood of her having a meaningful neurologic recovery is fairly unlikely especially as her pupils are fixed and dilated and she does not withdraw from pain, she has no corneal reflex -I think the patient's hypoperfusion from acute anemia and hemorrhagic shock was likely the cause of her acute neurologic event, likely TIA from hypoperfusion, nonetheless she was not a tPA candidate given her acute anemia concerns for GI bleed -I think the patient's EKG changes, ST elevations, troponin elevations over 4 were from acute anemia and hemorrhagic shock however I cannot rule out underlying cardiac etiology but she is too unstable for coronary angiography, -She is in respiratory for later she is on 100% FiO2 -In addition given her multiorgan failure, I do not think that she would have a meaningful recovery, I do not believe that she would have the level of functioning she would have before this acute event -She would likely be dependent on life-sustaining measures for the rest of her life -I gave him 2 options continuing medical interventions to see if we could stabilize her, continue CPR continue blood transfusions, continue fluids continue pressors see if you could stabilize her to see if maybe surgery could have an option for her -The second option would be to stop all life-sustaining measures and allow her to pass away comfortably -Patient's son immediately told me that his mom would not want this to be done, she would not want life-sustaining measures, if the likelihood of her recovering is fairly unlikely she would not want to remain on life-sustaining measures, -However they want us to talk to their brother -I went back into the room CPR was being resumed, she still was asystole, CPR was being resumed, no measurable blood pressure -I went back up to meet family, patient's sons, patient's was there at this point this was patient's 5 cardiac arrest episode -I again in detail went over the case with him, and patient's tells me that they want everything to be stopped, he wants his to pass away comfortably -After discussing the risks and benefits of comfort care, they voiced understanding, all questions answered, agreed to proceed with comfort care -All life-sustaining measures were stopped, patient was terminally extubated -Time of 1225 -Hemoglobin repeat hemoglobin came back, 2.2 Review of Systems General: Reports: ROS unobtainable due to endotracheal tube, ROS unobtainable due to medical condition and ROS unobtainable due to mental status Medications/Allergies Home Medications Medication Instructions Recorded Confirmed Last Taken Type Unable to Assess 02/09/23 02/09/23 Unknown History PFSH Acute PFSH: Medical History (Updated 02/09/23 @ 16:19 by Sumit Ravi MD) Abnormal EKG Acute kidney injury Blood loss anemia Cardiac arrest Gastrointestinal bleeding Hyperkalemia Metabolic acidosis Respiratory failure Transaminitis Surgical History (Updated 02/09/23 @ 16:14 by Sumit Ravi MD) History of neck surgery Family History (Updated 02/09/23 @ 16:14 by Sumit Ravi MD) Other CAD (coronary artery disease) Social History (Updated 02/09/23 @ 16:14 by Sumit Ravi MD) Smoking and tobacco status: current every day smoker Alcohol intake: current Substance/Drug Use: never Vitals/I&O/Wt Last Vital Signs Temp 96.6 F L 02/09/23 08:34 Pulse 141 H 02/09/23 11:38 Resp 13 02/09/23 11:29 BP 101/82 02/09/23 11:38 Pulse Ox 100 02/09/23 11:20 O2 Del Method 02/09/23 08:34 FiO2 100 02/09/23 11:20 02/08/23 02/09/23 02/09/23 21:59 06:59 14:59 Intake Total 1521.859 / 1521.859 Balance 1521.859 / 1521.859 Weight last 48 hrs Weight 56.245 kg Physical Exam Const: GENERAL APPEARANCE: ill appearing and frail appearing OTHER: Intubated, on mechanical ventilation, endotracheal tube in place, right central line in place HENMT: OTHER: Pupils fixed, dilated, nonresponsive to light, no corneal reflex Lymph: LYMPHATIC: no lymphadenopathy noted Chest: COMMONS NORMALS: normal inspection of the chest Resp: COMMON NORMALS: normal respiratory effort, No retractions and No use of accessory muscles AUSCULTATION: crackles and wheezes Cardio: COMMON NORMALS: no JVD, regular rate, regular rhythm, S1 normal heart sound present and S2 normal heart sound present RATE: regular rate RHYTHM: regular rhythm HEART SOUNDS: S1 normal heart sound present and S2 normal heart sound present GI: OTHER: Abdomen soft, slightly distended, decreased bowel sounds, no guarding, no rebound, no rigidity Extremity: COMMON NORMALS: no pedal edema Neuro: OTHER: Does not follow neuro testing Skin: OTHER: Mottling up to the level of the abdomen Bilateral DP PT pulses not palpable Peripheral pulses not palpable Bluish hue to bilateral lower extremity Urinary Catheter Management: Garza: Cath Placed During This Visit: yes Urinary Catheter Date of Insertion: 02/09/23 Data 02/09/23 11:55 02/09/23 09:30 A&P Assessment and plan (1) Hemorrhagic shock: (2) Blood loss anemia: (3) Cardiac arrest: (4) Abnormal EKG: (5) Multiorgan failure: (6) Acute renal failure: (7) Shock liver: (8) Lactic acidosis: (9) Acute anemia: (10) GI bleed: (11) Respiratory failure: (12) Hyperkalemia: (13) Transaminitis: (14) Respiratory failure: (15) Metabolic acidosis: (16) Alcohol use disorder: (17) Excessive use of nonsteroidal anti-inflammatory drugs (NSAIDs): (18) NSTEMI (non-ST elevated myocardial infarction): (19) TIA (transient ischemic attack): (20) ST elevation: Plan As above Attestations Medical Necessity Statement*: Patient requires hospitalization due to hemorrhagic shock GI bleed, acute blood loss anemia, lactic acidosis, transaminitis, renal failure, shock liver, NSTEMI, acute cardiac event, acute neurologic event Coding Level of Care Code Critical Care >/= 30 minutes Critical care time (in minutes): 180 The high probability of a clinically significant, sudden or life threatening deterioration, as referenced in this documentation, required my full and direct attention, intervention and personal management. The critical care time shown is in addition to time spent performing any reported separately billable procedures and includes the following: [x] Data and vital sign review and interpretation [x ] Patient assessment, examination and intervention [x] Medication orders and management [x] Patient/Family updates as able [x] Care Coordination and Documentation. Other Coding Information Critical care time spent over 180 minutes, I stated at bedside with patient when she was in the emergency room, and throughout her ICU stay only leaving the room to discuss with family in the waiting room nonetheless I periodically return to check up on patient Diagnoses Hemorrhagic shock R57.8 Blood loss anemia D50.0 Cardiac arrest I46.9 Abnormal EKG R94.31 Multiorgan failure Acute renal failure N17.9 Shock liver K72.00 Lactic acidosis E87.20 Acute anemia D64.9 GI bleed K92.2 Respiratory failure J96.90 Hyperkalemia E87.5 Transaminitis R74.01 Respiratory failure J96.90 Metabolic acidosis E87.20 Alcohol use disorder F10.90 Excessive use of nonsteroidal anti-inflammatory drugs (NSAIDs) F19.90 NSTEMI (non-ST elevated myocardial infarction) I21.4 TIA (transient ischemic attack) G45.9 ST elevation R94.31
--- NOTE | 2023-02-09 13:41 | PM.CCNAC ---
Critical Care Event Note The high probability of a clinically significant, sudden or life threatening deterioration of the patient's [] system(s) required my full and direct attention, intervention and personal management. The critical care time is as shown. This time is in addition to time spent performing any reported procedures but includes the following: [x] Data and vital sign review and interpretation [x] Patient assessment, examination and intervention [x] Documentation [x] Medication orders and management Critical Care Time Code activated: Yes Critical Care Time (min): 180 Additional information about critical care time: As per my H&P note Coding Level of Care Code Acute Code for Kingsley Huitron
--- NOTE | 2023-02-09 15:08 | PC.NURSE ---
body released to [facility] at this time
--- NOTE | 2023-02-09 15:28 | ANES.PROC ---
Anesthesia Procedures Procedure/Date: 02/09/23 Central Venous Insert: Time Out Performed: Yes Consent: risks and benefits reviewed and emergency procedure Central Line: New Anesthesia monitors: pulse oximetry, EKG, BP cuff and oxygen Vein cannulated: right internal jugular Ultrasound used: to identify patency to vessel and to visualize needle entry to vein Post procedure: Obtain Chest X-Ray Additional Comments: Sterile procedure was used Ultrasound was used, to identify patency of the vessel visualized the needle entry into the vein, with flashback of dark red blood that was nonpulsatile when needle was entered into the vein Ultrasound was used to verify that guidewire was in the right internal jugular vein X-ray confirmed placement of of central line into right internal jugular vein -Procedure was performed by Dr. TIMI SELLERS
== END 2023-02-09 15:00 | disposition expired | DRG 811 ==
LOC: ER 10:43 → ICU 11:08
PROVIDERS: Admitting Provider Family Medicine; Emergency Provider Emergency Medicine; PCP Family Medicine; Visit Provider Family Medicine
DX: D62 Acute posthemorrhagic anemia (principal); I21.4 Non-ST elevation (NSTEMI) myocardial infarction; J96.90 Respiratory failure, unspecified, unspecified whether with hypoxia or hypercapnia; K72.00 Acute and subacute hepatic failure without coma; G45.9 Transient cerebral ischemic attack, unspecified; N17.9 Acute kidney failure, unspecified; E87.20 Acidosis, unspecified; F10.20 Alcohol dependence, uncomplicated; G89.29 Other chronic pain; M54.2 Cervicalgia; Z79.1 Long term (current) use of non-steroidal anti-inflammatories (NSAID); R57.8 Other shock; I46.9 Cardiac arrest, cause unspecified
CPT/HCPCS: 36416; 36430; 36600; 51702; 70450; 71045; 80051; 80053; 82330; 82805; 82962; 83605; 84484; 85007; 85014; 85018; 85025; 85610; 85730; 86850; 86900; 86920; 86927; 93005; 94002; 94799; 96365; 96366; 96367; 96375; 99291; 99292; C1751; J1644; J2250; J3010; J3490; J7030; J7060; J7070; P9016; P9017; P9040